=== PATIENT | male | born 2000 | race Hispanic/Latino ===

== ENCOUNTER 2024-05-17 13:30 | Emergency (ER) | payer SELFPAY ==
[~2024-05-17] VITALS: Ht 175.3 cm; Wt 82.6 kg
[2024-05-17 14:14] VITALS: BP 122/76; PULSE 70; RESP 16; TEMP 98; O2SAT 99
[2024-05-17] MEDS: ibuPROFEN 800 MG TAB PO ONE (14:49)
[2024-05-17] MEDS: CLINDAMYCIN 150 MG CAP PO ONE (14:49)
[2024-05-17] MEDS: LIDOCAINE HCL 1% 20 ML VIAL INJ SCH (14:51)
[2024-05-17] MEDS ORDERED: IBUP-2077 PO (14:58)
[2024-05-17] MEDS ORDERED: CLIN-141 PO (14:58)
== END 2024-05-17 15:11 | disposition home or self-care (01) ==
LOC: EEVIPCON 13:30 → EDH 13:30
DX: L05.01 Pilonidal cyst with abscess (principal)
CPT/HCPCS: 10080